=== PATIENT | male | born 1975 | race Two or more races ===

== ENCOUNTER → 2024-09-16 | Day surgery (SDC) | payer OTHER ==
[~2024-09-16] MED LIST: DEXAMETHASONE SOD PHOS INJ 4 MG/ML SDV ONE; FENTANYL CITRATE/PF 100MCG/2 ML INJ ONE; GLUCAGON FOR INJ 1 MG VIAL ONE; HYOSCYAMINE SULFATE 0.5 MG/ML INJ ONE; KETOROLAC TROMETHAMINE 30 MG/ML VIAL ONE; LIDOCAINE HCL 2% LOCAL INJ 5 ML SDV VIAL INJ ONE; PROPOFOL IV EMULSION 10 MG/ML 20 ML VIAL ONE
[2024-09-16] MEDS: LACTATED RINGER'S 1,000 ML ONE (07:19)
[2024-09-16 09:14] VITALS: TEMP 97.6
[2024-09-16 09:45] VITALS: BP 101/78; PULSE 98; RESP 16; O2SAT 97
== END | disposition home or self-care (01) ==
LOC: OR 06:55
PROVIDERS: ATTEND Internal Medicine Gastroenterology
DX: Z12.11 Encounter for screening for malignant neoplasm of colon (principal); K62.1 Rectal polyp; K64.8 Other hemorrhoids; E66.9 Obesity, unspecified; M19.90 Unspecified osteoarthritis, unspecified site; Z88.2 Allergy status to sulfonamides; Z01.810 Encounter for preprocedural cardiovascular examination; Z68.31 Body mass index [BMI] 31.0-31.9, adult
CPT/HCPCS: 45380; 93005; J1100; J1610; J1885; J1980; J2003; J2704; J3010; J7121; 45378; 45385